=== PATIENT | female | born 1970 | race Caucasian/White ===

== ENCOUNTER 2018-06-09 13:45 | Emergency (ER) | payer OTHER ==
[~2018-06-09] VITALS: Ht 152.4 cm; Wt 69.1 kg
[~2018-06-09 13:45] MED LIST: ATEN50TA PO; METH10TA7 PO
[2018-06-09 15:43] VITALS: BP 111/72
== END 2018-06-09 15:44 | disposition home or self-care (01) ==
LOC: EMS 13:46
DX: J30.9 Allergic rhinitis, unspecified (principal); E05.90 Thyrotoxicosis, unspecified without thyrotoxic crisis or storm; I10 Essential (primary) hypertension; Z79.899 Other long term (current) drug therapy